=== PATIENT | female | born 1985 | race Caucasian/White ===

== ENCOUNTER 2017-09-06 10:10 | Day surgery (SDC) | payer MEDICAID ==
[2017-09-06 11:55] LABS: ADD MAN DIFF? NO
[2017-09-06 11:58] LABS: WHITE BLOOD COUNT 6.2 10^3/ul (4.8-10.8)
[2017-09-06 11:58] LABS: BASOPHILS % 0.3 % (0.0-2.0); EOSINOPHILS # 0.1 10^3/ul (0.0-0.5); EOSINOPHILS % 2.3 % (0.0-7.0); HEMATOCRIT 38.2 % (37.0-47.0); HEMOGLOBIN 12.7 g/dl (12.0-16.0); LYMPHOCYTES # 1.8 10^3/ul (0.8-2.9); LYMPHOCYTES % 29.2 % (15.0-51.0); MEAN CORPUSCULAR HEMOGLOBIN 30.3 pg (29.0-33.0); MEAN CORPUSCULAR HGB CONC 33.2 g/dl (32.0-37.0); MEAN CORPUSCULAR VOLUME 91.2 fl (82.0-101.0); MEAN PLATELET VOLUME 10.6 fl (7.4-10.4); MONOCYTE # 0.3 10^3/ul (0.3-0.9); MONOCYTES % 5.3 % (0.0-11.0); NEUTROPHIL # 3.9 10^3/ul (1.6-7.5); NEUTROPHILS % 62.7 % (39.0-77.0); PLATELET COUNT 269 10^3/UL (140-415); RED BLOOD COUNT 4.19 10^6/ul (4.20-5.40); RED CELL DISTRIBUTION WIDTH 14.9 % (11.5-14.5)
[2017-09-06 12:16] LABS: ALANINE AMINOTRANSFERASE 33 IU/L (13-69); ALBUMIN 4.2 g/dl (3.3-4.9); ALBUMIN/GLOBULIN RATIO 1.35; ALKALINE PHOSPHATASE 81 IU/L (42-121); ANION GAP 13 (8-16); ASPARTATE AMINO TRANSFERASE 22 IU/L (15-46); BILIRUBIN,INDIRECT 0.5 mg/dl (0-1.1); BILIRUBIN,TOTAL 0.5 mg/dl (0.2-1.3); CARBON DIOXIDE 30 mmol/L (21-31); CHLORIDE 108 mmol/L (97-110); GLUCOSE 82 mg/dl (70-220); TOTAL PROTEIN 7.3 g/dl (6.1-8.1)
[2017-09-06 12:23] LABS: INR 0.98; PARTIAL THROMBOPLASTIN TIME 30.3 Sec (25.0-35.0); PROTIME 13.1 Sec (11.9-14.9)
[2017-09-06 12:28] LABS: BLOOD UREA NITROGEN 13 mg/dl (7-20); CREATININE 0.56 mg/dl (0.44-1.00); POTASSIUM 3.9 mmol/L (3.5-5.1); SODIUM 147 mmol/L (135-144)
[2017-09-06 12:29] LABS: ADD UMIC YES; UR ASCORBIC ACID NEGATIVE (NEGATIVE); UR BACTERIA MANY /HPF (NONE SEEN); UR BILIRUBIN (Dip) NEGATIVE (NEGATIVE); UR BLOOD (Dip) NEGATIVE (NEGATIVE); UR CLARITY SLIGHTLY CLOUDY (CLEAR); UR COLOR YELLOW (YELLOW); UR GLUCOSE (Dip) NEGATIVE (NEGATIVE); UR KETONES (Dip) NEGATIVE (NEGATIVE); UR LEUKOCYTE ESTERASE (Dip) TRACE Leu/ul (NEGATIVE); UR MUCUS MANY /HPF (NONE SEEN); UR NITRITE (Dip) POSITIVE (NEGATIVE); UR RBC 1 /HPF (0-5); UR SPECIFIC GRAVITY (Dip) 1.025 (1.003-1.030); UR SQUAMOUS EPITHELIAL CELL FEW /HPF (FEW); UR TOTAL PROTEIN (Dip) NEGATIVE (NEGATIVE); UR UROBILINOGEN (Dip) NEGATIVE (NEGATIVE); UR WBC 30 /HPF (0-5)
[2017-09-06] MEDS ORDERED: PROPOFOL 0 ML (12:41)
[2017-09-06] MEDS ORDERED: ROCURONIUM 50 MG INJ ×2 (12:41→13:36)
[2017-09-06] MEDS ORDERED: ONDANSETRON 4 MG INJ ×2 (12:42→13:36)
[2017-09-06] MEDS ORDERED: MIDAZOLAM 1 MG/ML 2 ML INJ ×3 (12:42→14:47)
[2017-09-06] MEDS ORDERED: KETOROLAC 30 MG INJ ×2 (12:42→13:36)
[2017-09-06] MEDS ORDERED: METOCLOPRAMIDE 10 MG INJ ×2 (12:42→13:36)
[2017-09-06] MEDS ORDERED: ROPIVACAINE 0.5 % 30 ML VIAL ×2 (12:42→13:37)
[2017-09-06] MEDS ORDERED: ACETAMINOPHEN 1000MG/100ML IV 0 ML (13:25)
[2017-09-06] MEDS ORDERED: CEFAZOLIN 1 GM INJ (13:36)
[2017-09-06] MEDS ORDERED: PROPOFOL 20 ML (13:36)
[2017-09-06] MEDS: BUPIVACAINE 0.5%/EPI (SDV) 30 ML INJ (13:39)
[2017-09-06] MEDS ORDERED: ACETAMINOPHEN 1000MG/100ML IV 100 ML (13:39)
[2017-09-06] MEDS ORDERED: NEOSTIGMINE 3 MG/3 ML SYRINGE (13:51)
[2017-09-06] MEDS ORDERED: FENTAnyl 50 MCG/ML VIAL (13:51)
[2017-09-06] MEDS ORDERED: GLYCOPYRROLATE 0.4 MG INJ (13:51)
[2017-09-06] MEDS ORDERED: morphine (1 MG/ML) 10ML SYRINGE IV (14:13)
[2017-09-06] MEDS ORDERED: LACTATED RINGER'S 1,000 ML IV (14:15)
[2017-09-06] MEDS ORDERED: morphine 2 MG INJ IV (14:30)
[2017-09-06] MEDS ORDERED: ACETAMINOPHEN 325 MG TAB PO (14:30)
[2017-09-06] MEDS ORDERED: IBUPROFEN 600 MG TAB PO (14:30)
[2017-09-06] MEDS ORDERED: OXYCODONE/ACETAMINOPHEN (5/325) TAB PO ×2 (14:30)
[2017-09-06] MEDS ORDERED: ONDANSETRON 4 MG INJ IV (14:30)
[2017-09-06] MEDS: morphine (1 MG/ML) 10ML SYRINGE IV (14:31)
[2017-09-06] MEDS: MIDAZOLAM 1 MG/ML 2 ML INJ IV (15:02)
[2017-09-06] MEDS: FAMOTIDINE 20 MG INJ IV (15:07)
[2017-09-06] MEDS ORDERED: PANTOPRAZOLE (EC) 40 MG TAB PO (15:24)
[2017-09-06] MEDS: PANTOPRAZOLE (EC) 40 MG TAB PO (15:31)
== END 2017-09-06 17:00 | disposition home or self-care (01) ==
LOC: SDS 10:10
DX: Z30.2 Encounter for sterilization (principal)
CPT/HCPCS: 58670; 80053; 81001; 84703; 85025; 85610; 85730; 86850; 86900; 86901